=== PATIENT | female | born 1945 | race Caucasian/White ===

== ENCOUNTER 2020-04-24 14:51 | Emergency (ER) | payer MEDICARE ==
[~2020-04-24] VITALS: Ht 154.9 cm; Wt 49.9 kg
--- NOTE | 2020-04-24 15:08 | NUR ---
patient bibra from urgent care, c/o right hand pain and deformity s/p GLF while walking with sister. On room air, breathing evenly an dunlabored. connected to the monitor and pulse ox. kept comfortable, will continue to monitor accordingly.
--- NOTE | 2020-04-24 15:17 | NUR ---
kate at bedside for x-ray
[2020-04-24] MEDS ORDERED: ACETAMINOPHEN ES 500 MG TABLET ONE (16:27)
[2020-04-24] MEDS ORDERED: ACETAMINOPHEN ES 500 MG TABLET PO ONE (16:30)
--- NOTE | 2020-04-24 16:42 | NUR ---
CALLED [facility] FOR CONSULT.
[2020-04-24 17:49] VITALS: BP 110/65
--- NOTE | 2020-04-24 17:52 | NUR ---
Patient discharged to home in stable condition. Written and verbal after care instructions given. Patient verbalizes understanding of instruction.IV removed. Catheter intact and site benign. Pressure and 4x4 applied to site. No bleeding noted.
== END 2020-04-24 17:52 | disposition home or self-care (01) ==
LOC: ER 14:54
DX: S52.571A Other intraarticular fracture of lower end of right radius, initial encounter for closed fracture (principal); S52.611A Displaced fracture of right ulna styloid process, initial encounter for closed fracture; S50.311A Abrasion of right elbow, initial encounter; S50.312A Abrasion of left elbow, initial encounter; J44.9 Chronic obstructive pulmonary disease, unspecified; F17.200 Nicotine dependence, unspecified, uncomplicated; W01.0XXA Fall on same level from slipping, tripping and stumbling without subsequent striking against object, initial encounter; Y93.01 Activity, walking, marching and hiking; Y92.89 Other specified places as the place of occurrence of the external cause; Y99.8 Other external cause status
CPT/HCPCS: 73070-TC; 73110

== ENCOUNTER 2020-05-08 09:40 | Outpatient (CLI) | payer MEDICARE | END 2020-05-08 23:59 | disposition home or self-care (01) | LOC: LAB 09:40 | PROVIDERS: ATTEND Student in an Organized Health Care Education/Training Program | DX: Z01.812 Encounter for preprocedural laboratory examination (principal); Z11.59 Encounter for screening for other viral diseases; S52.514D Nondisplaced fracture of right radial styloid process, subsequent encounter for closed fracture with routine healing; X58.XXXD Exposure to other specified factors, subsequent encounter; M25.531 Pain in right wrist ==

== ENCOUNTER 2020-05-13 07:35 | Day surgery (SDC) | payer MEDICARE ==
--- NOTE | 2020-05-13 08:00 | NUR ---
MS RN NOTES PT ARRIVED IN THE UNIT AT 0750, PT A/OX4, AMBULATORY. PT TOLERATING RA, WITH NO ACUTE RESPIRATORY DISTRESS NOTED. PT STATED TOLERABLE PAIN TO RIGHT WRIST. PT DENIES ANY WOUND, PREFERS NOT TO BE PHYSICALLY ASSESSED. VS TAKEN AND RECORDED. PT ORIENTED TO STAFFS, ROOM, MEALS, ETC. PT KEPT COMFORTABLE. CALL LIGHT KEPT WITHIN REACH. PT'S BED IN LOWEST, LOCKED POSITION WITH SR X3. WILL CONTINUE PLAN OF CARE.
[2020-05-13] MEDS ORDERED: TRAM50TA2 PO (08:27)
[2020-05-13] MEDS ORDERED: LATA2.5D7 EACHEYE (08:27)
[2020-05-13 09:00] VITALS: BP 137/66
--- NOTE | 2020-05-13 09:42 | NUR ---
MS RN NOTES PT BEING TRANSFERRED TO OR FOR PREOP. STARTED PIV TO LAC G20, FLUSHED WITH NS INTACT AND OPERATIONAL. OR TECH INFORMED PT WANTS TO DR BARON BEFORE SIGNING CONSENTS. PT LEFT THE UNIT AT 0940.
[2020-05-13] MEDS ORDERED: BACITRACIN 50000 UNITS/VIAL ONE (10:15)
[2020-05-13] MEDS ORDERED: FENTANYL PF 100MCG/2ML AMPUL ONE ×2 (10:25→12:35)
[2020-05-13] MEDS ORDERED: MIDAZOLAM HCL 2 MG/2ML VIAL ONE (10:25)
[2020-05-13] MEDS ORDERED: BUPIVACAINE 0.5 % PF 150 MG/30 ML VIAL ONE (11:57)
[2020-05-13] MEDS ORDERED: HYDROMORPHONE 1 MG/1 ML DISP.SYRIN ONE (12:57)
[2020-05-13] MEDS ORDERED: ALBUTEROL FS 2.5 MG/3 ML VIAL.NEB ONE (13:18)
[2020-05-13 13:45] VITALS: BP 126/56
--- NOTE | 2020-05-13 13:45 | NUR ---
MS RN NOTES PT JUST CAME BACK FROM RECOVERY. PER RN/MEG PT RECEIVED DILAUDID 1MG WAS JUST GIVEN AT AROUND 12:30PM AND RECEIVED FENTANYL 100MCG WELL AFTER THE SURGERY. RECEIVED PT WITH RIGHT ARM SLING ON, ORDERED NON-WEIGHT BEARING. SISTER/DILMA NOLASCO INFORMED VIA PHONE WELL TO F/U WITH DR. BARON IN 2WKS. WILL CONTINUE TO MONITOR.
--- NOTE | 2020-05-13 15:48 | NUR ---
MS MANAGER ASSESSMENT NOTES PT GOING HOME WITH THE SISTER/SIENNA. PT A/OX4, AWAKE, ABLE TO AMBULATE. RIGHT ARM SLING PRESENT, S/P RIGHT WRIST ORIF WITH DR. BARON. PT IN TOLERABLE PAIN AT THE TIME OF DISCHARGE. PER SISTER/SIENNA, TRAMADOL PAIN MEDICINE ALREADY FILLED AND WITH THE SISTER. DISCHARGE INSTRUCTIONS AND INVENTORY LIST REVIEWED BY PT BUT UNABLE TO SIGN, CO-WORKER WITNESSED AND SIGNED. RN INFORMED DENIZ Carballo ABOUT DISCHARGE INSTRUCTIONS/ PIV TO LAC G20, REMOVED AND APPLIED DRY DRESSING. ALL NEEDS AND CARE ATTENDED. PT ABLE TO EAT ATE LUNCH BEFORE LEAVING. PT HAS STABLE VITALS AND RECORDED. PT ESCORTED VIA WHEELCHAIR BY SPINNER [employer] PIPE TO THE LOBBY. PT LEFT THE UNIT AT 1540.
--- NOTE | 2020-05-13 15:50 | NUR ---
MS RN NOTES PT'S RIGHT ARM WITH INTACT AND DRY DRESSING. ARM SLING PRESENT AT DISCHARGE. NO PICTURES TAKEN. TO FOLLOW UP WITH DR BARON IN 2WEEKS. PT AND DILMA NOLASCO MADE AWARE.
== END 2020-05-13 16:00 | disposition home or self-care (01) ==
LOC: DS 07:35 → UNDOADMIN 07:36 → MED 07:36 → DS 16:00 → UNDODISIN 17:00
PROVIDERS: ATTEND Student in an Organized Health Care Education/Training Program
DX: S52.591A Other fractures of lower end of right radius, initial encounter for closed fracture (principal); X58.XXXA Exposure to other specified factors, initial encounter; Y93.89 Activity, other specified; Y92.89 Other specified places as the place of occurrence of the external cause; Y99.8 Other external cause status; J44.9 Chronic obstructive pulmonary disease, unspecified; I10 Essential (primary) hypertension
CPT/HCPCS: 25609; 73090; A4217; A4565; A6253; A6402; C1713 ×6; J0690; J1170; J2250; J2405; J2704; J2765; J3010 ×2; J3490 ×2; G0378

== ENCOUNTER 2020-07-22 09:46 | Outpatient (CLI) | payer MEDICARE ==
[~2020-07-22 09:46] MED LIST: LATA2.5D7 EACHEYE; TRAM50TA2 PO
== END 2020-07-22 23:59 | disposition home or self-care (01) ==
LOC: LAB 09:46
PROVIDERS: ATTEND Student in an Organized Health Care Education/Training Program
DX: Z01.812 Encounter for preprocedural laboratory examination (principal); Z20.828 Contact with and (suspected) exposure to other viral communicable diseases
CPT/HCPCS: 87426; C9803 ×2; U0003

== ENCOUNTER 2020-07-27 11:27 | Inpatient (IN) | payer MEDICARE ==
[2020-07-27] VITALS (7 sets, daily range): BP systolic 128–142; BP diastolic 60–78
[~2020-07-27 11:27] MED LIST changes: +ANESTHESIA TRAY IN PYXIS 1 EA TRAY MC ONE; +BACITRACIN 50000 UNITS/VIAL ONE; +BUPIVACAINE 0.5 % PF 150 MG/30 ML VIAL ONE
--- NOTE | 2020-07-27 13:00 | NUR ---
DAY SURGERY PT CAME AT 1200 FOR DAY SURGERY PROCEDURE TO BE DONE BY DR. BARON, REMOVAL OF HARDWARE ON R WRIST. ALL CONSENTS SIGNED BY PT. IV ACCESS STARTED ON L FOREARM G20. INTACT AND PATENT AND FLUSHING WELL. PT WAS PICKED UP BY PRE-OP NURSE STEFANY PERAZA AT 1300.
[2020-07-27] MEDS ORDERED: FENTANYL PF 100MCG/2ML AMPUL ONE (13:36)
[2020-07-27] MEDS ORDERED: MIDAZOLAM HCL 2 MG/2ML VIAL ONE ×2 (13:36→13:37)
[2020-07-27] MEDS ORDERED: HYDR-3980 PO (13:45)
--- NOTE | 2020-07-27 15:00 | NUR ---
BACK FROM SURGERY PT BACK FROM SURGERY. VS CHECKED. VS STABLE. PT IS AWAKE AOX4. OKAY TO D/C HOME PER DR. BARON. PER PT SHE WAS TO GO AROUND 5PM. CALLED SISTER FOR [employer]PER[employer] MAILS BY 5PM.
[2020-07-27] MEDS ORDERED: oxyCODONE/APAP (5/325 MG) 1 UDTAB TABLET PO PRN (16:00)
[2020-07-27] MEDS ORDERED: PERCOCET 10/325 PO PRN (16:00)
--- NOTE | 2020-07-27 17:15 | NUR ---
D/C HOME PT DISCHARGED HOME. PT IN STABLE CONDITION. ALL D/C.INSTRUCTIONS GIVEN TO THE SISTER PACHECO AND PT. VERBALIZED UNDERSTANDING. INSTRUCTED PT AND SISTER TO KEEP SLING ON AT ALL TIMES AND NOTIFIED PT OF MD'S NON-WEIGHT BEARING ORDERS TO RUE. ALSO INSTRUCTED THEM THAT THEY NEED TO MAKE A F/U APPT WITH DR. BARON IN 1 WEEK ALSO ADDED THAT DRESSING SHOULD NOT BE REMOVED, THIS IS TO BE REMOVED BY DR. BARON AND TO KEEP DRESSING ON RUE CLEAN, DRY AND INTACT UNTIL NEXT APPT. PT AND SISTER VERBALIZED UNDERSTANDING. PT AWAKE ALERT AND ORIENTED X 4. NO CARDIAC OR RESPIRATORY DISTRESS NOTED. NO SOB NOTED. IV ACCESS NOTED ON LEFT FOREARM WAS REMOVED. CATHETER INTACT. NO BLEEDING NOTED. PT WAS WHEELED OUT TO THE LOBBY AND WAS MET BY HER SISTER THERE. ASSISTED PT TO THE CAR.
== END 2020-07-27 17:45 | disposition home or self-care (01) | DRG 561 ==
LOC: DS 11:27 → TELE 11:33
PROVIDERS: ADMIT Student in an Organized Health Care Education/Training Program; ATTEND Student in an Organized Health Care Education/Training Program
PROC: 0XP70JZ Removal of Synthetic Substitute from Left Upper Extremity, Open Approach (ICD-10-PCS; principal; 2020-07-27)
DX: T84.098A Other mechanical complication of other internal joint prosthesis, initial encounter (principal); Y83.9 Surgical procedure, unspecified as the cause of abnormal reaction of the patient, or of later complication, without mention of misadventure at the time of the procedure; Y92.009 Unspecified place in unspecified non-institutional (private) residence as the place of occurrence of the external cause; J44.9 Chronic obstructive pulmonary disease, unspecified
CPT/HCPCS: 73100-TC; 87081-TC; 88300-TC; A4565; A6402; G0378; J1100; J1885; J2250; J2405; J2704; J3010; J3490